=== PATIENT | female | born 2000 | race Caucasian/White ===

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

== ENCOUNTER → 2018-01-22 | Outpatient (REF) | payer OTHER | LOC: M LAB REF 16:40 | DX: J02.9 Acute pharyngitis, unspecified (principal) ==

== ENCOUNTER 2019-02-15 09:47 | Day surgery (SDC) | payer BC, OTHER ==
[~2019-02-15] VITALS: Ht 167.6 cm; Wt 75.7 kg
[~2019-02-15 09:47] MED LIST: IBUP-1114 PO; LIDOCAINE 1% MDV 20ML VIAL SQ PRN
[2019-02-15] MEDS ORDERED: PREN29TA4 PO (10:32)
[2019-02-15 11:30] LABS: HEMATOCRIT 37.1 % (36.0-47.0); HEMOGLOBIN 12.9 g/dl (12.0-15.5); MEAN CORPUSCULAR HEMOGLOBIN 30.4 pg (27.0-33.0); MEAN CORPUSCULAR HGB CONC 34.8 g/dl (32.0-36.5); MEAN CORPUSCULAR VOLUME 87.5 fl (80.0-96.0); PLATELET COUNT, AUTOMATED 162 10^3/uL (150-450); RED BLOOD COUNT 4.24 10^6/uL (4.00-5.40); WHITE BLOOD COUNT 5.6 10^3/uL (4.0-10.0)
[2019-02-15] MEDS ORDERED: ONDANSETRON 4MG/2ML VIAL (J2405) As Ordered ONE (11:46)
[2019-02-15] MEDS ORDERED: dexameTHASONE 4 MG/ML 1ML VIAL (J1100) As Ordered ONE (11:46)
[2019-02-15] MEDS ORDERED: KETOROLAC 60 MG/2 ML VIAL (J1885) As Ordered ONE (11:46)
[2019-02-15] MEDS ORDERED: fentaNYL 100 MCG/2 ML INJECTION (J3010) As Ordered ONE (12:24)
[2019-02-15] MEDS ORDERED: MIDAZOLAM INJ 2 MG/2 ML VIAL (J2250) As Ordered ONE (12:24)
[2019-02-15] MEDS ORDERED: LIDOCAINE 1% SDV INJ 30 ML VIAL As Ordered ONE (12:58)
[2019-02-15] MEDS ORDERED: PROPOFOL 200 MG/20 ML VIAL As Ordered ONE (13:01)
[2019-02-15] MEDS ORDERED: ACETAMINOPHEN 500 MG TAB PO ONE (14:00)
[2019-02-15] MEDS ORDERED: DOXYCYCLINE HYCLATE 100 MG TAB PO ONE (14:00)
[2019-02-15 14:35] VITALS: BP 133/78
[2019-02-15] MEDS ORDERED: LR 1,000 ML IV ONE (16:15)
--- NOTE | 2019-02-18 14:25 | RO ---
DATE OF PROCEDURE: 02/15/2019 PREPROCEDURE DIAGNOSIS: Missed , 7 weeks gestation. POSTPROCEDURE DIAGNOSIS: Missed , 7 weeks gestation. PROCEDURE: Dilation and evacuation and curettage. SURGEON: Henry Cook MD ANESTHESIA: Local with sedation. ESTIMATED BLOOD LOSS: Minimal. FINDINGS: Moderate amount of products of conception. DESCRIPTION OF PROCEDURE: The patient was taken to the operating room where IV sedation was given. She was prepped and draped in a sterile fashion in the dorsal lithotomy position. Bladder was emptied with a catheter. Speculum was placed in the vagina and the tip of the cervix was grasped with a tenaculum. The cervix was injected circumferentially with a total of 20 mL of 1% Lidocaine. The cervix was dilated with taper dilators. An 8 mm suction curette was passed through the internal os. The suction device was activated and gently rotated until products of conception were noted to be coming through the suction tube. Sharp curettage was performed. The uterine cavity was deemed to be empty. All instruments were removed. The sponge and instrument counts were correct.
== END 2019-02-15 14:35 | disposition home or self-care (01) ==
LOC: M SDC 09:47
PROVIDERS: ATTEND Specialist
DX: O02.1 Missed abortion (principal)
CPT/HCPCS: 36415; 59820; 85027; 86850; 86900; 86901; 88305; J1100; J1885; J2250; J2405; J3010

== ENCOUNTER → 2019-09-19 | Outpatient (REF) | payer OTHER ==
[~2019-09-19] MED LIST changes: -LIDOCAINE 1% MDV 20ML VIAL SQ PRN; +PREN29TA4 PO
[2019-09-19 15:27] LABS: CHOLESTEROL RISK RATIO 1.984 (<5)
== END ==
LOC: M LABDRAW1 15:04
PROVIDERS: ATTEND Family Medicine
DX: Z13.220 Encounter for screening for lipoid disorders (principal)

== ENCOUNTER → 2020-10-06 | Outpatient (CLI) | payer BC, OTHER ==
[2020-10-06 08:26] LABS: CHOLESTEROL LEVEL 118 MG/DL (<200); CHOLESTEROL RISK RATIO 1.903 (<5); FREE T4 1.03 NG/DL (0.76-1.46); HCG, SERUM QUANTITATIVE < 1.0 MIU/ML; HDL CHOLESTEROL 62 MG/DL (>40); LDL CHOLESTEROL 45 MG/DL (<100); NON-HDL-C 56 MG/DL; TRIGLYCERIDES LEVEL 57 MG/DL (<150)
== END ==
LOC: M LAB 07:20
PROVIDERS: ATTEND Family Medicine
DX: Z13.220 Encounter for screening for lipoid disorders (principal); Z13.29 Encounter for screening for other suspected endocrine disorder; N91.1 Secondary amenorrhea

== ENCOUNTER → 2021-03-24 | Outpatient (REF) | payer BC | LOC: M SFHCWAGY 13:10 | PROVIDERS: ATTEND Advanced Practice Midwife | DX: Z12.4 Encounter for screening for malignant neoplasm of cervix (principal) ==

== ENCOUNTER → 2021-03-29 | Outpatient (CLI) | payer BC, OTHER | LOC: M PLALAB 11:42 | PROVIDERS: ATTEND Advanced Practice Midwife | DX: Z13.79 Encounter for other screening for genetic and chromosomal anomalies (principal); Z80.3 Family history of malignant neoplasm of breast ==

== ENCOUNTER → 2021-03-31 | Outpatient (CLI) | payer BC ==
--- NOTE | 2021-03-31 14:28 | REP ---
INDICATION: N63.0 RIGHT BREAST NODULE. Very small, hard, round breast nodule right breast between 9 and 10 o'clock position, 5 cm from the nipple on clinician breast exam. The patient states that she cannot feel this. COMPARISON: None. TECHNIQUE: Targeted right breast sonography. FINDINGS: Right breast is scanned in the 8-11 o'clock position. Normal heterogeneous fibroglandular background echotexture is seen. No cyst or mass is observed. No acoustic shadowing or other significant finding. IMPRESSION: BI-RADS category 1-sonographic findings. Clinical follow-up is advised. <Electronically signed by Sven Naik > 03/31/21 [id number]
== END ==
LOC: M WHC 12:58
PROVIDERS: ATTEND Advanced Practice Midwife
DX: N63.0 Unspecified lump in unspecified breast (principal)

== ENCOUNTER → 2021-05-21 | Outpatient (CLI) | payer BC, OTHER ==
[2021-05-21 16:06] LABS: BASO % 0.4 % (0.0-1.0); EOS # 0.2 10^3/uL (0.0-0.5); EOS % 1.7 % (0.0-3.0); HEMATOCRIT 40.6 % (36.0-47.0); HEMOGLOBIN 13.8 g/dl (12.0-15.5); LYMPH # 1.4 10^3/uL (1.5-5.0); LYMPH % 14.4 % (24.0-44.0); MEAN CORPUSCULAR HEMOGLOBIN 30.9 pg (27.0-33.0); MEAN CORPUSCULAR VOLUME 90.8 fl (80.0-96.0); MONO # 0.7 10^3/uL (0.0-0.8); NEUTROPHILS # 7.3 10^3/uL (1.5-8.5); NEUTROPHILS % 76.1 % (36.0-66.0); PLATELET COUNT, AUTOMATED 208 10^3/uL (150-450); RED BLOOD COUNT 4.47 10^6/uL (4.00-5.40); WHITE BLOOD COUNT 9.6 10^3/uL (4.0-10.0)
[2021-05-21 17:25] LABS: HEPATITIS C VIRUS ABY INDEX < 0.0 INDEX (<0.8); HIV 1&2 SCREEN CENTAUR NEGATIVE (NEGATIVE)
[2021-05-23 08:41] LABS: GC DNA AMPLIFICATION NEGATIVE (NEGATIVE)
== END ==
LOC: M PLALAB 12:07
PROVIDERS: ATTEND Advanced Practice Midwife
DX: Z34.81 Encounter for supervision of other normal pregnancy, first trimester (principal)

== ENCOUNTER → 2021-06-07 | Outpatient (CLI) | payer BC, OTHER ==
--- NOTE | 2021-06-07 14:27 | REP ---
INDICATION: PREG 1SR TRIM W/ BLEEDING ? AB. COMPARISON: None. TECHNIQUE: Transvesical imaging FINDINGS: Within the uterus there is an anechoic structure with increased echoes surrounding it consistent with a decidual reaction. Within the gestational sac there is echogenic material consistent with a pole the mean crown-rump length measurement of which is consistent with a 10 week 1 day gestational age. Based on that the estimated date of delivery is 01/02/2022. Doppler interrogation of the pole shows a heart rate of 178 beats per minute. There is no evidence of a chorionic or subchorionic abnormality. IMPRESSION: Early OB ultrasound as described above. <Electronically signed by Tru Lerma > 06/07/21 [id number]
== END ==
LOC: M RAD 13:50
PROVIDERS: ATTEND Advanced Practice Midwife
DX: O20.0 Threatened abortion (principal)

== ENCOUNTER → 2021-06-16 | Outpatient (CLI) | payer BC, OTHER ==
[2021-06-16 16:05] LABS: TOTAL PROTEIN,RANDOM URINE 9.9 MG/DL (0.0-12.0)
[2021-06-16 16:06] LABS: ALBUMIN 3.8 GM/DL (3.2-5.2); ALT/SGPT 17 U/L (12-78); BILIRUBIN,TOTAL 0.2 MG/DL (0.2-1.0); BLOOD UREA NITROGEN 6 MG/DL (7-18); CALCIUM LEVEL 9.2 MG/DL (8.5-10.1); CARBON DIOXIDE LEVEL 28 MEQ/L (21-32); CHLORIDE LEVEL 107 MEQ/L (98-107); CREATININE FOR GFR 0.55 MG/DL (0.55-1.30); GLOMERULAR FILTRATION RATE > 60.0 (>60); GLUCOSE, FASTING 77 MG/DL (70-100); POTASSIUM SERUM 3.8 MEQ/L (3.5-5.1); SODIUM LEVEL 138 MEQ/L (136-145)
== END ==
LOC: M PLALAB 12:39
PROVIDERS: ATTEND Obstetrics & Gynecology
DX: Z34.91 Encounter for supervision of normal pregnancy, unspecified, first trimester (principal); Z3A.00 Weeks of gestation of pregnancy not specified

== ENCOUNTER → 2021-07-02 | Outpatient (CLI) | payer BC, OTHER ==
[~2021-07-02] MED LIST changes: +ASPI81CH33 PO; +LABE100T4 PO
--- NOTE | 2021-07-03 17:57 | REP ---
INDICATION: VAGINAL BLEEDING DURING COMPARISON: 06/07/2021 TECHNIQUE: Transabdominal 1st trimester obstetrical ultrasound with color Doppler evaluation. FINDINGS: Single live intrauterine in variable presentation. Biometrical measurements correspond to 14 weeks 0 days gestational age with estimated date of delivery 12/31/2021. heart rate: 167 bpm. Placenta noted posteriorly and grade 0. Cervix measures 3.5 cm in length. A small subchorionic hemorrhages identified towards the fundus and measures 12 x 22 x 10 mm. IMPRESSION: Single live early intrauterine at 14 weeks 0 days gestational age by current measurements. Small subchorionic hemorrhage. Complete anatomical assessment should be performed and 19-20 weeks. <Electronically signed by Devante Ortiz > 07/03/21 [id number]
== END ==
LOC: M WHC 10:29
PROVIDERS: ATTEND Advanced Practice Midwife
DX: O46.90 Antepartum hemorrhage, unspecified, unspecified trimester (principal); Z3A.14 14 weeks gestation of pregnancy

== ENCOUNTER 2021-07-17 08:52 | Emergency (ER) | payer BC, OTHER ==
[~2021-07-17] VITALS: Ht 167.6 cm; Wt 79.3 kg
[~2021-07-17 08:52] MED LIST changes: -ASPI81CH33 PO; -LABE100T4 PO
[2021-07-17] MEDS ORDERED: ASPI81CH33 PO (09:00)
[2021-07-17] MEDS ORDERED: LABE100T4 PO (09:00)
[2021-07-17 09:40] LABS: BASO % 0.3 % (0.0-1.0); EOS # 0.1 10^3/uL (0.0-0.5); EOS % 0.6 % (0.0-3.0); HEMATOCRIT 35.8 % (36.0-47.0); HEMOGLOBIN 12.5 g/dl (12.0-15.5); LYMPH # 1.1 10^3/uL (1.5-5.0); LYMPH % 11.7 % (24.0-44.0); MEAN CORPUSCULAR HEMOGLOBIN 30.3 pg (27.0-33.0); MEAN CORPUSCULAR HGB CONC 34.9 g/dl (32.0-36.5); MEAN CORPUSCULAR VOLUME 86.9 fl (80.0-96.0); MONO # 0.5 10^3/uL (0.0-0.8); MONO % 5.3 % (2.0-8.0); NEUTROPHILS # 7.6 10^3/uL (1.5-8.5); NEUTROPHILS % 81.7 % (36.0-66.0); PLATELET COUNT, AUTOMATED 172 10^3/uL (150-450); RED BLOOD COUNT 4.12 10^6/uL (4.00-5.40); WHITE BLOOD COUNT 9.3 10^3/uL (4.0-10.0)
[2021-07-17 09:54] LABS: INR 0.99; PROTHROMBIN TIME 13.5 SECONDS (12.7-14.5)
[2021-07-17 09:55] LABS: PARTIAL THROMBOPLASTIN TIME 26.6 SECONDS (25.9-37.0)
[2021-07-17 10:36] VITALS: BP 122/64
== END 2021-07-17 10:49 | disposition home or self-care (01) ==
LOC: M ED 08:52
DX: O99.512 Diseases of the respiratory system complicating pregnancy, second trimester (principal); R04.0 Epistaxis; R04.2 Hemoptysis; R05.9 Cough, unspecified; Z3A.16 16 weeks gestation of pregnancy; Z79.899 Other long term (current) drug therapy

== ENCOUNTER → 2021-08-12 | Outpatient (CLI) | payer BC, OTHER ==
[~2021-08-12] MED LIST changes: +ASPI81CH33 PO; +LABE100T4 PO
== END ==
LOC: M WHC 07:33
PROVIDERS: ATTEND Advanced Practice Midwife
DX: Z34.92 Encounter for supervision of normal pregnancy, unspecified, second trimester (principal); Z3A.20 20 weeks gestation of pregnancy

== ENCOUNTER → 2021-09-21 | Outpatient (CLI) | payer BC, OTHER | LOC: M WHC 07:05 | PROVIDERS: ATTEND Obstetrics & Gynecology | DX: O26.872 Cervical shortening, second trimester (principal); Z3A.25 25 weeks gestation of pregnancy ==

== ENCOUNTER → 2021-10-01 | Outpatient (CLI) | payer BC, OTHER ==
[2021-10-01 13:36] LABS: HEMATOCRIT 35.3 % (36.0-47.0); HEMOGLOBIN 12.4 g/dl (12.0-15.5); MEAN CORPUSCULAR HEMOGLOBIN 31.5 pg (27.0-33.0); MEAN CORPUSCULAR HGB CONC 35.1 g/dl (32.0-36.5); MEAN CORPUSCULAR VOLUME 89.6 fl (80.0-96.0); PLATELET COUNT, AUTOMATED 168 10^3/uL (150-450); RED BLOOD COUNT 3.94 10^6/uL (4.00-5.40); WHITE BLOOD COUNT 12.1 10^3/uL (4.0-10.0)
[2021-10-01 15:22] LABS: GC DNA AMPLIFICATION NEGATIVE (NEGATIVE)
== END ==
LOC: M PLALAB 08:25
PROVIDERS: ATTEND Obstetrics & Gynecology
DX: Z34.92 Encounter for supervision of normal pregnancy, unspecified, second trimester (principal); Z3A.24 24 weeks gestation of pregnancy

== ENCOUNTER 2021-10-05 12:31 | Outpatient (CLI) | payer BC, OTHER ==
[~2021-10-05] VITALS: Ht 167.6 cm; Wt 88.4 kg
[2021-10-05 12:56] VITALS: BP 136/71
[2021-10-05] MEDS ORDERED: HOME MED LIST COMPLETE! XX SCH (14:00)
[2021-10-05 15:28] VITALS: BP 142/77
== END 2021-10-05 15:40 | disposition home or self-care (01) ==
LOC: M LDO 12:31
PROVIDERS: ATTEND Obstetrics & Gynecology
DX: O26.852 Spotting complicating pregnancy, second trimester (principal); O10.012 Pre-existing essential hypertension complicating pregnancy, second trimester; Y92.9 Unspecified place or not applicable; Y93.9 Activity, unspecified; Y99.9 Unspecified external cause status; Z3A.27 27 weeks gestation of pregnancy
CPT/HCPCS: 59025; 76815; G0463

== ENCOUNTER → 2022-03-29 | Outpatient (REF) | payer BC ==
[~2022-03-29] MED LIST changes: -LABE100T4 PO; +LABE100T6 PO
== END ==
LOC: M SFHCWAGY 15:13
PROVIDERS: ATTEND Obstetrics & Gynecology
DX: Z12.4 Encounter for screening for malignant neoplasm of cervix (principal)
CPT/HCPCS: 87624; G0123

== ENCOUNTER → 2022-05-18 | Outpatient (CLI) | payer BC ==
[2022-05-18 15:32] LABS: BASO % 0.6 % (0.0-1.0); EOS # 0.1 10^3/uL (0.0-0.5); HEMATOCRIT 43.3 % (36.0-47.0); LYMPH # 1.2 10^3/uL (1.5-5.0); LYMPH % 22.1 % (24.0-44.0); MEAN CORPUSCULAR HEMOGLOBIN 29.6 pg (27.0-33.0); MEAN CORPUSCULAR HGB CONC 34.6 g/dl (32.0-36.5); MEAN CORPUSCULAR VOLUME 85.6 fl (80.0-96.0); MONO # 0.4 10^3/uL (0.0-0.8); MONO % 7.3 % (2.0-8.0); NEUTROPHILS # 3.6 10^3/uL (1.5-8.5); NEUTROPHILS % 68.8 % (36.0-66.0); PLATELET COUNT, AUTOMATED 222 10^3/uL (150-450); RED BLOOD COUNT 5.06 10^6/uL (4.00-5.40); WHITE BLOOD COUNT 5.2 10^3/uL (4.0-10.0)
[2022-05-18 16:23] LABS: C REACTIVE PROTEIN QUANTITATIV 0.43 MG/DL (0.00-0.30); FREE T4 1.3 NG/DL (0.76-1.46); PERCENT SATURATION 23.9 % (13.2-45.0); THYROID STIMULATING HORMONE 0.903 uIU/ML (0.358-3.740)
[2022-05-18 16:45] LABS: TOTAL 25(OH) VITAMIN D 22.8 NG/ML (30.0-100.0)
[2022-05-20 15:07] LABS: IgG P18 AB Absent (.); IgG P23 AB Absent (.); IgG P28 AB Absent (.); IgG P30 AB Absent (.); IgG P39 AB Absent (.); IgG P41 AB Absent (.); IgG P45 AB Absent (.); IgG P66 AB Absent (.); IgG P93 AB Absent (.); IgM P23 AB Absent (.); IgM P39 AB Absent (.); IgM P41 AB Absent (.); LYME IgG WB INTERPRETATION Negative (.); LYME IgM WB INTERPRETATION Negative (.)
== END ==
LOC: M PLALAB 14:11
PROVIDERS: ATTEND Family Medicine
DX: R00.2 Palpitations (principal); R31.0 Gross hematuria; R53.83 Other fatigue

== ENCOUNTER → 2022-05-18 | Outpatient (CLI) | payer BC, OTHER ==
[~2022-05-18] MED LIST changes: +ISOVUE-370 76% 100ML VIAL As Ordered ONE
== END ==
LOC: M RAD 14:56
PROVIDERS: ATTEND Family Medicine
DX: R31.9 Hematuria, unspecified (principal)
CPT/HCPCS: 74178; Q9967

== ENCOUNTER → 2023-05-22 | Outpatient (CLI) | payer BC, OTHER ==
[~2023-05-22] MED LIST changes: -ISOVUE-370 76% 100ML VIAL As Ordered ONE
[2023-05-23 04:28] LABS: HIV 1&2 SCREEN NEGATIVE (NEGATIVE)
[2023-05-23 04:37] LABS: HEPATITIS B CORE ANTIBODY IGM NEGATIVE (NEGATIVE); HEPATITIS C VIRUS ABY INDEX 0.07 INDEX (<0.8)
== END ==
LOC: M PLALAB 15:37
PROVIDERS: ATTEND Obstetrics & Gynecology
DX: Z20.2 Contact with and (suspected) exposure to infections with a predominantly sexual mode of transmission (principal)

== ENCOUNTER → 2023-05-22 | Outpatient (REF) | payer BC, OTHER | LOC: M PLALAB 15:37 | PROVIDERS: ATTEND Obstetrics & Gynecology | DX: Z12.4 Encounter for screening for malignant neoplasm of cervix (principal) | CPT/HCPCS: 87624; G0123 ==

== ENCOUNTER → 2024-02-29 | Outpatient (CLI) | payer BC ==
[2024-02-29 16:00] LABS: BASO % 0.8 % (0.0-1.0); EOS # 0.1 10^3/uL (0.0-0.5); EOS % 2.8 % (0.0-3.0); HEMATOCRIT 42.7 % (36.0-47.0); HEMOGLOBIN 14.9 g/dl (12.0-15.5); LYMPH # 1.5 10^3/uL (1.5-5.0); LYMPH % 29.7 % (24.0-44.0); MEAN CORPUSCULAR HEMOGLOBIN 30.4 pg (27.0-33.0); MEAN CORPUSCULAR HGB CONC 34.9 g/dl (32.0-36.5); MEAN CORPUSCULAR VOLUME 87.1 fl (80.0-96.0); MONO # 0.4 10^3/uL (0.0-0.8); MONO % 7.1 % (2.0-8.0); NEUTROPHILS % 59.4 % (36.0-66.0); PLATELET COUNT, AUTOMATED 191 10^3/uL (150-450); WHITE BLOOD COUNT 5.1 10^3/uL (4.0-10.0)
[2024-02-29 16:33] LABS: ALBUMIN 4.6 G/DL (3.2-5.2); ALKALINE PHOSPHATASE 49 U/L (46-116); ALT/SGPT 17 U/L (7.0-40); AST/SGOT 14 U/L (<34); BILIRUBIN,TOTAL 1.2 MG/DL (0.3-1.2); BLOOD UREA NITROGEN 11 MG/DL (9-23); CALCIUM LEVEL 9.5 MG/DL (8.5-10.1); CARBON DIOXIDE LEVEL 25 MMOL/L (20-31); CHLORIDE LEVEL 104 MMOL/L (98-107); CHOLESTEROL LEVEL 120 MG/DL (<200); CHOLESTEROL RISK RATIO 1.86 (<5); CREATININE FOR GFR 0.72 MG/DL (0.55-1.30); GLOMERULAR FILTRATION RATE > 60.0 (>60); GLUCOSE, FASTING 72 MG/DL (60-100); HDL CHOLESTEROL 64.5 MG/DL (>40); LDL CHOLESTEROL 46.9 MG/DL (<100); NON-HDL-C 55.5 MG/DL; POTASSIUM SERUM 4.2 MMOL/L (3.5-5.1); SODIUM LEVEL 137 MMOL/L (136-145); TRIGLYCERIDES LEVEL 43 MG/DL (<150)
[2024-02-29 16:37] LABS: FREE T4 1.31 NG/DL (0.89-1.76); THYROID STIMULATING HORMONE 1.132 uIU/ML (0.55-4.78)
== END ==
LOC: M PLALAB 13:05
PROVIDERS: ATTEND Family Medicine
DX: Z13.29 Encounter for screening for other suspected endocrine disorder (principal); Z13.0 Encounter for screening for diseases of the blood and blood-forming organs and certain disorders involving the immune mechanism; Z13.220 Encounter for screening for lipoid disorders

== ENCOUNTER → 2024-03-29 | Outpatient (CLI) | payer BC | LOC: M RAD 07:39 | PROVIDERS: ATTEND Family Medicine | DX: G44.52 New daily persistent headache (NDPH) (principal) ==

== ENCOUNTER → 2024-10-31 | Outpatient (CLI) | payer BC | LOC: M RAD 07:57 | PROVIDERS: ATTEND Family Medicine | DX: D13.4 Benign neoplasm of liver (principal); K80.20 Calculus of gallbladder without cholecystitis without obstruction; K76.0 Fatty (change of) liver, not elsewhere classified ==